=== PATIENT | female | born 1995 | race Caucasian/White ===

== ENCOUNTER → 2017-05-28 | Outpatient (CLI) | payer BC ==
[2017-03-16 10:52] VITALS: BP 83/41
--- NOTE | 2017-05-28 13:54 | KCIC ---
Right breast ultrasound: Reason for examination: Right breast lump in the 10:00 region on clinical exam with right breast pain. Ultrasound examination was performed in the area of clinical concern in the upper-outer quadrant. There is a small 4.6 x 3 mm fibrocystic type lesion at the 11:00 position 4 cm from the nipple. In the area of clinical concern at the 9:00 position 5 cm from the nipple, there is no discrete cystic or solid lesion. No abnormal lymph nodes are seen in the right axilla. IMPRESSION: Benign-appearing fibrocystic lesion measuring 4.6 mm in size at the 11:00 position. No abnormality in the area of clinical concern at the 9:00 position. Recommend clinical follow-up. BI-RADS Category 2: Benign. "Our facility is accredited by the [employer] Mammography Program." This patient's information has been entered into a reminder system for the patient to be notified with the results of her examination and a target date for the next mammogram. Electronically signed by: Caron Schultz MD (05/28/2017 1:50 PM) [id number]
== END | disposition home or self-care (01) ==
LOC: KCIC US 09:52
PROVIDERS: ATTEND Obstetrics & Gynecology
DX: N63.11 Unspecified lump in the right breast, upper outer quadrant (principal); N64.4 Mastodynia
CPT/HCPCS: 76641